=== PATIENT | male | born 1980 | race African-American/Black ===

== ENCOUNTER 2016-07-01 09:59 | Day surgery (SDC) | payer OTHER ==
[~2016-07-01] VITALS: Ht 170.2 cm; Wt 74.8 kg
[~2016-07-01 09:59] MED LIST: ALBUTEROL17 G1 IH; ALBUTEROL17 GM IH; CEFDINIR300 MG PO; CYMBALTA30 MG PO; FLEXERIL10 MG PO; KEFLEX500 MG PO; MELOXICAM15 MG PO; MOTRIN600 MG PO; MOTRIN800 MG PO; NAPROSYN500 MG PO; NAPROXEN500 MG PO; NEXIUM20 MG PO; NEXIUM40 MG PO; NORCO 5/3251 TABLET PO; PERCOCET 5/31 TABLET PO; ROBITUSSIN AC,T10 ML PO; TRAMADOL HCL50 MG PO; ZOFRAN ODT4 MG PO
[2016-07-01] MEDS ORDERED: MELOXICAM7.5 MG PO (10:43)
[2016-07-01] MEDS ORDERED: ROPINIROLE HCL0.5 MG PO (10:44)
== END 2016-07-01 11:53 | disposition home or self-care (01) ==
LOC: PAIN 09:59 → SDC 11:00 → PAIN 11:53
PROC: 3E0X33Z Introduction of Anti-inflammatory into Cranial Nerves, Percutaneous Approach (ICD-10-PCS; principal; 2016-07-01)
DX: M54.16 Radiculopathy, lumbar region (principal); F41.9 Anxiety disorder, unspecified
CPT/HCPCS: J1100; J2250; J3010

== ENCOUNTER 2016-07-30 22:15 | Emergency (ER) | payer OTHER ==
[~2016-07-30] VITALS: Ht 170.2 cm; Wt 71.8 kg
[~2016-07-30 22:15] MED LIST changes: +MELOXICAM7.5 MG PO; +ROPINIROLE HCL0.5 MG PO
[2016-07-30 23:24] LABS: CHLORIDE 108 mEq/L (99-109); POTASSIUM 3.7 mEq/L (3.7-5.4); SODIUM 140 mEq/L (136-147)
[2016-07-30 23:25] LABS: ADD MIUA? NO; BILIRUBIN NEGATIVE; BLOOD NEGATIVE; COLOR YELLOW ((YELLOW)); GLUCOSE (STRIP) NEGATIVE; KETONES NEGATIVE; LEUKOCYTES NEGATIVE; NITRITE NEGATIVE; PROTEIN (STRIP) NEGATIVE; SPECIFIC GRAVITY 1.027 (1.000-1.030); UCUL ADDED? NO
[2016-07-30 23:26] LABS: GLUCOSE 95 mg/dL (70-99)
[2016-07-30 23:27] LABS: ANION GAP 9 MEQ/L (2-14)
[2016-07-30 23:28] LABS: TOTAL BILIRUBIN 0.4 mg/dL (0.0-1.0)
[2016-07-30 23:29] LABS: SERUM ETHYL ALCOHOL < 10 mg/dL
[2016-07-30 23:30] LABS: ALKALINE PHOSPHATASE 68 IU/L (3-129); GFR ESTIMATE (CALCULATED) > 59 mL/min/
[2016-07-30 23:32] LABS: UREA NITROGEN (BUN) 17 mg/dL (9-23)
[2016-07-30 23:33] LABS: SALICYLATE < 5.0 MG/DL (15-30)
[2016-07-30 23:46] LABS: AMPHETAMINE NEGATIVE (500 ng/mL); BARBITURATES NEGATIVE (200 ng/mL); BENZODIAZEPINES NEGATIVE (150 ng/mL); COCAINE NEGATIVE (150 ng/mL); INTERNAL CONTROLS VALID? YES; METHADONE NEGATIVE (200 ng/mL); METHAMPHETAMINE NEGATIVE (500 ng/mL); OPIATES (MORPHINE) NEGATIVE (100 ng/mL); OXYCODONE NEGATIVE (100 ng/mL); PHENCYCLIDINE NEGATIVE (25 ng/mL); PROPOXYPHENE NEGATIVE (300 ng/mL); THC CANNABINOIDS NEGATIVE (50 ng/mL); TRICYCLIC ANTIDEPRESSANTS NEGATIVE (300 ng/mL)
[2016-07-31] MEDS ORDERED: ATARAX,VISTARIL25 MG PO (00:17)
[2016-07-31] MEDS ORDERED: ZOFRAN4 MG PO (00:17)
[2016-07-31 00:21] VITALS: BP 139/99
== END 2016-07-31 00:22 | disposition home or self-care (01) ==
LOC: EME 22:15
PROVIDERS: Physician Assistant
DX: T43.206A Underdosing of unspecified antidepressants, initial encounter (principal); R11.0 Nausea; F32.9 Major depressive disorder, single episode, unspecified; Z91.14 Patient's other noncompliance with medication regimen
CPT/HCPCS: 80053; 81003; 85027; 99281; 99284; G0480; Q0177

== ENCOUNTER 2016-09-13 13:43 | Emergency (ER) | payer OTHER ==
[~2016-09-13] VITALS: Ht 172.7 cm; Wt 73.5 kg
[~2016-09-13 13:43] MED LIST changes: +ATARAX,VISTARIL25 MG PO; +ZOFRAN4 MG PO
[2016-09-13 15:00] LABS: HEMATOCRIT 45.2 % (38.0-50.0); MCHC 33.8 G/DL (30.0-36.0); MCV 91.5 FL (86-99); MEAN PLAT.VOLUME 9.4 uM^3 (9.0-12.4); PLATELET COUNT 314 K/uL (156-360); RBC DIS.WIDTH-CV 11.9 % (11.8-14.6); RBC DIS.WIDTH-SD 39.6 % (39-53); RED BLOOD COUNT 4.94 M/uL (4.00-5.50)
[2016-09-13 15:14] LABS: CHLORIDE 106 mEq/L (99-109); SODIUM 139 mEq/L (136-147)
[2016-09-13 15:16] LABS: GLUCOSE 98 mg/dL (70-99)
[2016-09-13 15:17] LABS: ANION GAP 7 MEQ/L (2-14)
[2016-09-13 15:18] LABS: TOTAL BILIRUBIN 0.6 mg/dL (0.0-1.0)
[2016-09-13 15:19] LABS: ALKALINE PHOSPHATASE 62 IU/L (3-129)
[2016-09-13 15:20] LABS: GFR ESTIMATE (CALCULATED) > 59 mL/min/
[2016-09-13 15:21] LABS: UREA NITROGEN (BUN) 19 mg/dL (9-23)
[2016-09-13 15:23] LABS: LIPASE 22 U/L (1.0-51.0)
[2016-09-13 15:36] LABS: ADD MIUA? NO; BILIRUBIN NEGATIVE; BLOOD NEGATIVE; COLOR YELLOW ((YELLOW)); GLUCOSE (STRIP) NEGATIVE; KETONES NEGATIVE; LEUKOCYTES NEGATIVE; NITRITE NEGATIVE; PROTEIN (STRIP) NEGATIVE; SPECIFIC GRAVITY 1.024 (1.000-1.030); UCUL ADDED? NO; UROBILINOGEN 0.2 MG/DL (0.2-1.0)
[2016-09-13] MEDS ORDERED: ZOFRAN ODT4 MG PO (16:02)
[2016-09-13] MEDS ORDERED: BENTYL20 MG PO (16:02)
[2016-09-13 17:01] VITALS: BP 127/86
== END 2016-09-13 17:06 | disposition home or self-care (01) ==
LOC: EME 13:43
DX: R10.30 Lower abdominal pain, unspecified (principal); R11.2 Nausea with vomiting, unspecified; R19.7 Diarrhea, unspecified
CPT/HCPCS: 80053; 81003; 83690; 85027; 99281; 99284; J0500

== ENCOUNTER 2016-11-02 11:34 | Emergency (ER) | payer OTHER ==
[~2016-11-02] VITALS: Ht 172.7 cm; Wt 72.7 kg
[~2016-11-02 11:34] MED LIST changes: +BENTYL20 MG PO
[2016-11-02] MEDS ORDERED: CYMBALTA60 MG PO (12:48)
[2016-11-02] MEDS ORDERED: LYRICA100 MG PO (12:48)
[2016-11-02 13:11] LABS: HEMATOCRIT 43.2 % (38.0-50.0); MCH 32.2 PG (29.0-34.0); MCHC 34.5 G/DL (30.0-36.0); MCV 93.3 FL (86-99); MEAN PLAT.VOLUME 9.4 uM^3 (9.0-12.4); PLATELET COUNT 257 K/uL (156-360); RBC DIS.WIDTH-CV 11.9 % (11.8-14.6); RBC DIS.WIDTH-SD 40.7 % (39-53); RED BLOOD COUNT 4.63 M/uL (4.00-5.50); WHITE BLOOD COUNT 8.2 K/uL (4.1-10.2)
[2016-11-02 13:20] LABS: CHLORIDE 108 mEq/L (99-109); POTASSIUM 3.9 mEq/L (3.7-5.4); SODIUM 138 mEq/L (136-147)
[2016-11-02 13:23] LABS: GLUCOSE 103 mg/dL (70-99)
[2016-11-02 13:24] LABS: ANION GAP 8 MEQ/L (2-14)
[2016-11-02 13:25] LABS: TOTAL BILIRUBIN 0.6 mg/dL (0.0-1.0)
[2016-11-02 13:26] LABS: ALKALINE PHOSPHATASE 66 IU/L (3-129); GFR ESTIMATE (CALCULATED) > 59 mL/min/
[2016-11-02 13:27] LABS: UREA NITROGEN (BUN) 21 mg/dL (9-23)
[2016-11-02 13:30] LABS: LIPASE 24 U/L (1.0-51.0)
[2016-11-02 13:51] LABS: ADD MIUA? YES; BILIRUBIN NEGATIVE; BLOOD NEGATIVE; COLOR YELLOW ((YELLOW)); GLUCOSE (STRIP) NEGATIVE; KETONES NEGATIVE; LEUKOCYTES NEGATIVE; NITRITE NEGATIVE; PROTEIN (STRIP) 100; SPECIFIC GRAVITY 1.035 (1.000-1.030)
[2016-11-02 14:11] LABS: BACTERIA RARE /HPF; EPITHELIAL CELLS RARE /HPF; MUCUS 1+ /LPF; RED BLOOD CELLS 0-5 /HPF (0-5); UCUL ADDED? NO; WHITE BLOOD CELLS 0-5 /HPF (0-5)
[2016-11-02 14:15] LABS: AMPHETAMINE NEGATIVE (500 ng/mL); BARBITURATES NEGATIVE (200 ng/mL); BENZODIAZEPINES NEGATIVE (150 ng/mL); COCAINE NEGATIVE (150 ng/mL); INTERNAL CONTROLS VALID? YES; METHADONE NEGATIVE (200 ng/mL); METHAMPHETAMINE NEGATIVE (500 ng/mL); OPIATES (MORPHINE) NEGATIVE (100 ng/mL); OXYCODONE NEGATIVE (100 ng/mL); PHENCYCLIDINE NEGATIVE (25 ng/mL); PROPOXYPHENE NEGATIVE (300 ng/mL); THC CANNABINOIDS NEGATIVE (50 ng/mL); TRICYCLIC ANTIDEPRESSANTS NEGATIVE (300 ng/mL)
[2016-11-02 15:20] VITALS: BP 146/82
== END 2016-11-02 15:23 | disposition home or self-care (01) ==
LOC: EME 11:34
PROVIDERS: Nurse Practitioner Family
DX: G62.9 Polyneuropathy, unspecified (principal); R11.2 Nausea with vomiting, unspecified
CPT/HCPCS: 70450; 71020; 80053; 81003; 83690; 85027; 99281; 99285; J2405; J3010; J7030

== ENCOUNTER 2017-11-07 08:38 | Emergency (ER) | payer OTHER ==
[~2017-11-07] VITALS: Ht 170.2 cm; Wt 74.5 kg
[~2017-11-07 08:38] MED LIST changes: +CYMBALTA60 MG PO; +LYRICA100 MG PO
[2017-11-07 09:14] LABS: APPEARANCE CLEAR ((CLEAR)); BILIRUBIN NEGATIVE; BLOOD NEGATIVE; COLOR YELLOW ((YELLOW)); GLUCOSE (STRIP) NEGATIVE; KETONES NEGATIVE; LEUKOCYTES NEGATIVE; NITRITE NEGATIVE; PROTEIN (STRIP) 30; SPECIFIC GRAVITY 1.025 (1.000-1.030); UROBILINOGEN 0.2 MG/DL (0.2-1.0)
[2017-11-07 09:15] LABS: BASOPHIL (%) 0.8 % (0-1); BASOPHIL COUNT 0.1 K/uL (0-0.1); EOSINOPHIL (%) 7.1 % (0-5); EOSINOPHIL COUNT 0.4 K/uL (0-0.3); HEMATOCRIT 41.1 % (38.0-50.0); HEMOGLOBIN 14.7 G/DL (12.5-16.6); IMMATURE GRANULOCYTE (%) 0.2 % (0.0-0.7); LYMPHOCYTE (%) 27.4 % (15-42); LYMPHOCYTE COUNT 1.7 K/uL (1.0-2.8); MCH 32.7 PG (29.0-34.0); MCHC 35.8 G/DL (30.0-36.0); MCV 91.5 FL (86-99); MONOCYTE (%) 8.8 % (3-12); MONOCYTE COUNT 0.6 K/uL (0-0.8); NEUTROPHIL (%) 55.7 % (45-76); NEUTROPHIL COUNT 3.5 K/uL (1.8-6.4); PLATELET COUNT 261 K/uL (156-360); RBC DIS.WIDTH-CV 11.7 % (11.8-14.6); RBC DIS.WIDTH-SD 39.4 % (39-53); RED BLOOD COUNT 4.49 M/uL (4.00-5.50); WHITE BLOOD COUNT 6.2 K/uL (4.1-10.2)
[2017-11-07 09:55] LABS: CHLORIDE 105 MEQ/L (99-109); CREATININE 1.1 MG/DL (0.6-1.3); GFR ESTIMATE (CALCULATED) > 59 mL/min/ (58.99-99999); GLUCOSE 79 mg/dL (70-99); SODIUM 138 MEQ/L (136-147); UREA NITROGEN (BUN) 19 mg/dL (9-23)
[2017-11-07] MEDS ORDERED: LEVAQUIN500 MG PO ×2 (10:46→10:49)
[2017-11-07] MEDS ORDERED: PERCOCET 5/31 TABLET PO (10:46)
[2017-11-07 11:03] VITALS: BP 124/80
== END 2017-11-07 11:16 | disposition home or self-care (01) ==
LOC: EME 08:38
PROVIDERS: Emergency Medicine
DX: N45.1 Epididymitis (principal); N43.3 Hydrocele, unspecified; M79.7 Fibromyalgia; K21.9 Gastro-esophageal reflux disease without esophagitis; J45.909 Unspecified asthma, uncomplicated; F41.9 Anxiety disorder, unspecified; F32.9 Major depressive disorder, single episode, unspecified
CPT/HCPCS: 76870; 80048; 81003; 85025; 99281; 99285

== ENCOUNTER 2017-12-24 08:52 | Emergency (ER) | payer OTHER ==
[~2017-12-24] VITALS: Ht 167.6 cm; Wt 70.9 kg
[~2017-12-24 08:52] MED LIST changes: +LEVAQUIN500 MG PO
[2017-12-24] MEDS ORDERED: TYLENOL WITH C1 EACH PO (11:18)
[2017-12-24 11:40] VITALS: BP 129/86
== END 2017-12-24 11:41 | disposition home or self-care (01) ==
LOC: EME 08:52
DX: S60.051A Contusion of right little finger without damage to nail, initial encounter (principal); W23.0XXA Caught, crushed, jammed, or pinched between moving objects, initial encounter; Y99.0 Civilian activity done for income or pay
CPT/HCPCS: 73130; 99281; 99283